=== PATIENT | male | born 1980 | race Caucasian/White ===

== ENCOUNTER 2017-11-01 08:10 | Emergency (ER) | END 2017-11-01 10:25 | disposition left against medical advice (07) ==

== ENCOUNTER 2018-04-02 21:19 | Emergency (ER) | payer SELFPAY ==
[~2018-04-02] VITALS: Wt 85.3 kg
[~2018-04-02 21:19] MED LIST: ACET500C5 PO; CYCL10TA7 PO; NAPR-985 PO
[2018-04-02] MEDS ORDERED: KETOROLAC 30 MG INJ IV STA (23:27)
[2018-04-02] MEDS ORDERED: DIPHENHYDRAMINE 50 MG INJ IV ONE (23:30)
[2018-04-02] MEDS ORDERED: METOCLOPRAMIDE 10 MG INJ IV ONE (23:30)
[2018-04-02] MEDS ORDERED: SOD CHLORIDE 0.9% 1,000 ML IV ONE (23:30)
--- NOTE | 2018-04-03 01:35 | ERD ---
ER Documentation Chief Complaint Chief Complaint bib self, cc: n/v x 3 today, headache since 7 am, no fall, no trauma HPI 38-year-old male [id number] male patient with no significant past medical history presents the ED complaining of a headache that started this morning at 7 AM. Patient reports that he has been receiving epidural injections in the last one was on March 21, 2018. States that he had a blood patch done 2 days later but he still has a headache. Patient reports that he has an appointment with Dr. Julisa Motta, later today for a follow-up appointment. ROS All systems reviewed and are negative except as per history of present illness. Medications Home Meds Active Scripts Cyclobenzaprine Hcl* (Cyclobenzaprine Hcl*) 10 Mg Tablet, 10 MG PO QHS, #7 TAB Prov:BARBARA MCKEON PA-C 11/01/17 Acetaminophen* (Tylophen*) 500 Mg Capsule, 1 CAP PO Q6H PRN for PAIN AND OR ELEVATED TEMP, #30 CAP Prov:BARBARA MCKEON PA-C 11/01/17 Naproxen* (Naprosyn*) 500 Mg Tablet, 500 MG PO BID PRN for PAIN AND/OR INFLAMMATION, #30 TAB Prov:BARBARA MCKEON PA-C 11/01/17 Allergies Allergies: Coded Allergies: No Known Allergy (Unverified , 11/01/17) PMhx/Soc Medical and Surgical Hx: pt denies Medical Hx, pt denies Surgical Hx Hx Alcohol Use: No Hx Substance Use: No Hx Tobacco Use: No Smoking Status: Never smoker FmHx Family History: No diabetes, No coronary disease Physical Exam Vitals Vital Signs Date Temp Pulse Resp B/P (MAP) Pulse Ox O2 O2 Flow FiO2 Time Delivery Rate 04/03/18 98.9 64 19 114/61 98 Room Air 02:12 (78) 04/02/18 98.3 74 19 159/88 100 21:28 (111) Physical Exam Const: Oqc-zzz-fzvluxatw, well-nourished. In no acute distress. Head: Atraumatic, normocephalic Eyes: Normal Conjunctiva without injection. No purulent discharge. PERRLA. EOMI ENT: Normal external ear. Ear canal without erythema. Tympanic membrane pearly elliott without effusion or bulging. Nasal canal clear with normal turbinates. Moist oropharynx without tonsillar exudates. Non-erythematous pharynx. Uvula midline. No drooling. No trismus. Neck: No cervical midline tenderness. Full range of motion. No meningismus. No cervical lymphadenopathy. No JVD. Resp: Clear to auscultation bilaterally. No wheezing, rhonchi, rales, or crackles. No accessory muscle use. No retractions. Cardio: Regular rate and rhythm. No murmurs, rubs or gallops. Abd: Soft, non tender, non distended. Normal bowel sounds. No palpable masses. No rebound tenderness. No guarding. Negative McBurney's Point. Negative Wagner's Sign. Skin: Normal skin turgor. No petechiae or rashes Back: No midline tenderness. No CVA tenderness. Ext: No cyanosis, or edema. Distal pulses intact bilaterally. Neur: Awake and alert. Normal gait. Normal coordination. Cranial Nerves II- VII intact. Normal finger to nose. Muscle strength 5/5. Sensation intact. Psych: Normal Mood and Affect Results 24 hrs Current Medications Medications Dose Sig/Howard Start Time Status Last (Trade) Ordered Route PRN Stop Time Admin Dose Reason Admin Sodium 1,000 ml @ Q1H ONCE 04/02/18 DC 04/03/18 Chloride 1,000 mls/hr IV 23:30 04/03/18 00:05 00:29 Ketorolac 30 mg ONCE STAT 04/02/18 DC 04/03/18 Tromethamine IV 23:27 04/02/18 00:06 (Toradol) 23:29 10 mg ONCE ONCE 04/02/18 DC 04/03/18 Metoclopramid IV 23:30 04/02/18 00:06 e HCl 23:31 (Reglan) 50 mg ONCE ONCE 04/02/18 DC 04/03/18 Diphenhydrami IV 23:30 04/02/18 00:06 ne HCl 23:31 (Benadryl) Procedures/MDM 38-year-old male patient with no significant past medical history presents to the ED complaining of headache that started early this morning at 7 AM. Patient is afebrile and nontoxic-appearing. Patient has a blood pressure of 159/88. Blood Pressure Assessment: Patient's blood pressure was elevated (>120/80) but appears stable without evidence of hypertension emergency or urgency. The patient was counseled about the risks of hypertension and urged to pursue outpatient monitoring and therapy within a week with their primary care physician. Patient has good follow-up care, later today has an appointment with Dr. Julisa Motta. Low suspicion for intracranial bleed, subarachnoid hemorrhage, meningitis, TIA, stroke, subdural hematoma, epidural hematoma, or other emergent conditions. Discussed with the patient with Dr. Barrett, my supervising physician who agreed with the management discharge plan. Diagnosis: Headache Follow up with primary care physician in 1-2 days. Instructed patient to return to the ED sooner for any worsening symptoms. Patient's questions were answered. Patient is hemodynamically stable. Patient understood and agreed with discharge plan. Patient discharged stable. Disclaimer: Inadvertent spelling and grammatical errors are likely due to EHR/dictation software use and do not reflect on the overall quality of patient care. Also, please note that the electronic time recorded on this note does not necessarily reflect the actual time of the patient encounter. Departure Diagnosis: Primary Impression: Headache Headache type: unspecified Headache chronicity pattern: unspecified pattern Intractability: not intractable Qualified Codes: R51 - Headache Condition: Stable Patient Instructions: Headache, Unspecified Referrals: COMMUNITY CLINICS YOU HAVE RECEIVED A MEDICAL SCREENING EXAM AND THE RESULTS INDICATE THAT YOU DO NOT HAVE A CONDITION THAT REQUIRES URGENT TREATMENT IN THE EMERGENCY DEPARTMENT. FURTHER EVALUATION AND TREATMENT OF YOUR CONDITION CAN WAIT UNTIL YOU ARE SEEN IN YOUR DOCTORS OFFICE WITHIN THE NEXT 1-2 DAYS. IT IS YOUR RESPONSIBILITY TO MAKE AN APPOINTMENT FOR FOLOW-UP CARE. IF YOU HAVE A PRIMARY DOCTOR --you should call your primary doctor and schedule an appointment IF YOU DO NOT HAVE A PRIMARY DOCTOR YOU CAN CALL OUR PHYSICIAN REFERRAL HOTLINE AT IF YOU CAN NOT AFFORD TO SEE A PHYSICIAN YOU CAN CHOSE FROM THE FOLLOWING [facility] [address] [facility] [address] [facility]. [facility] [address] [facility] [address] [facility] [address] [facility] [address] [facility]. [facility] YOU HAVE RECEIVED A MEDICAL SCREENING EXAM AND THE RESULTS INDICATE THAT YOU DO NOT HAVE A CONDITION THAT REQUIRES URGENT TREATMENT IN THE EMERGENCY DEPARTMENT. FURTHER EVALUATION AND TREATMENT OF YOUR CONDITION CAN WAIT UNTIL YOU ARE SEEN IN YOUR DOCTORS OFFICE WITHIN THE NEXT 1-2 DAYS. IT IS YOUR RESPONSIBILITY TO MAKE AN APPOINTMENT FOR FOLOW-UP CARE. IF YOU HAVE A PRIMARY DOCTOR --you should call your primary doctor and schedule and appointment IF YOU DO NOT HAVE A PRIMARY DOCTOR YOU CAN CALL OUR PHYSICIAN REFERRAL HOTLINE AT . IF YOU CAN NOT AFFORD TO SEE A PHYSICIAN YOU CAN CHOSE FROM THE FOLLOWING [facility] INSTITUTIONS: [facility] [address] [place] [address] [facility] [address] [place], [place] [id number] [place] [address] [address] [place] [address] [facility]CIALT[facility] Additional Instructions: Llame a wallace mdico de atencin primaria maana para lloyd arabella. Mantn tu arabella con Oralia en 04/03/[address] Julisa Motta. Consulta con el mdico antes o regresa aqu si tu afeccin empeora antes de la hora de tu arabella. VIDAL BARR PA-C Apr 03, 2018 01:33
[2018-04-03 02:12] VITALS: BP 114/61; PULSE 64; RESP 19
== END 2018-04-03 02:13 | disposition home or self-care (01) ==
LOC: FTE 21:19
DX: R51 Headache (principal)
CPT/HCPCS: J1200; J1885; J2765; J7030; 96374; 96375